=== PATIENT | male | born 1990 ===

== ENCOUNTER 2018-06-09 11:27 | Emergency (ER) | payer OTHER ==
[~2018-06-09] VITALS: Ht 182.9 cm; Wt 68.0 kg
== END 2018-06-09 12:59 | disposition home or self-care (01) ==
LOC: ER 11:27
DX: S60.456A Superficial foreign body of right little finger, initial encounter (principal); W45.8XXA Other foreign body or object entering through skin, initial encounter; F17.200 Nicotine dependence, unspecified, uncomplicated
CPT/HCPCS: 10120; 99282-25